=== PATIENT | female | born 1995 | race African-American/Black ===

== ENCOUNTER 2016-09-12 22:34 | Emergency (ER) | payer OTHER ==
[~2016-09-12] VITALS: Ht 170.2 cm; Wt 81.7 kg
[2016-09-12] MEDS ORDERED: NAPROSYN500 MG PO (23:59)
[2016-09-13 00:26] VITALS: BP 118/79
== END 2016-09-13 00:27 | disposition home or self-care (01) ==
LOC: ER 22:34
DX: S93.491A Sprain of other ligament of right ankle, initial encounter (principal); S80.01XA Contusion of right knee, initial encounter; V00.121A Fall from non-in-line roller-skates, initial encounter; Y93.51 Activity, roller skating (inline) and skateboarding; Y92.89 Other specified places as the place of occurrence of the external cause; Y99.8 Other external cause status